=== PATIENT | female | born 1935 | race Caucasian/White ===

== ENCOUNTER 2016-09-11 11:48 | Outpatient (CLI) | payer MEDICARE ==
[2016-09-11 12:57] LABS: Bilirubin Negative (Negative); Blood, Urine Small (Negative); Glucose, Urine (Dipstick) Negative (Negative); Ketone, Urine Negative (Negative); Nitrite Negative (Negative); Protein, Urine (Dipstick) Negative (Neg-Trace); Urobilinogen 0.2 mg/dL (0.2-1.0)
[2016-09-11 13:36] LABS: Bacteria/HPF 1+ HPF (None Seen); RBC/HPF 0-3 HPF (0-3); Squamous Epithelial 0-3 HPF (0-3)
== END 2016-09-11 11:49 | disposition home or self-care (01) ==
LOC: NAVSJIPCSP 11:48
PROVIDERS: ATTEND Internal Medicine
DX: N39.0 Urinary tract infection, site not specified (principal)
CPT/HCPCS: 81003; 81015; 87077; 87086

== ENCOUNTER 2016-09-20 14:53 | Outpatient (CLI) | payer MEDICARE | END 2016-09-20 14:54 | disposition home or self-care (01) | LOC: NAV LABSP 14:53 | PROVIDERS: ATTEND Internal Medicine | DX: I48.91 Unspecified atrial fibrillation (principal) | CPT/HCPCS: 85610 ==

== ENCOUNTER 2016-10-03 10:31 | Outpatient (CLI) | payer MEDICARE ==
[2016-10-03 12:07] LABS: Prothrombin Time 21.9 SEC (12.0-14.7)
== END 2016-10-03 10:32 | disposition home or self-care (01) ==
LOC: NAV LABSP 10:31
PROVIDERS: ATTEND Internal Medicine
DX: I48.91 Unspecified atrial fibrillation (principal)
CPT/HCPCS: 85610

== ENCOUNTER 2016-10-30 15:45 | Outpatient (CLI) | payer MEDICARE ==
[2016-10-30 16:15] LABS: #Eosinphils 0.2 thou/uL (0.0-0.7); #Lymphocytes 1.6 thou/uL (1.20-3.40); #Monocytes 0.5 thou/uL (0.11-0.59); #Neutrophils 4.5 thou/uL (1.40-6.50); %Basophils 0.6 % (0.0-1.0); %Eosinophils 3.2 % (0.0-10.0); %Lymphocytes 23.2 % (21.0-51.0); %Monocytes 7.9 % (0.0-10.0); Hematocrit 39.1 % (36.0-47.0); Mean Platelet Volume 8.1 fL (7.4-10.4); Red Blood Cell (RBC) Count 4.18 mill/uL (4.20-5.40); White Blood Cell (WBC) Count 6.9 thou/uL (4.8-10.8)
[2016-10-30 16:33] LABS: ALT (SGPT) 32 U/L (0-55); AST (SGOT) 23 U/L (5-34); Alkaline Phosphatase 167 U/L (40-150); Anion Gap 16 mmol/L (10-20); BUN (Urea Nitrogen) 19 mg/dL (9.8-20.1); Bilirubin, Total 0.9 mg/dL (0.2-1.2); Calc. Creatinine Clearance 0 mL/min (70-130); Calcium 9.3 mg/dL (7.8-10.44); Carbon Dioxide 28 mmol/L (23-31); Chloride 103 mmol/L (98-107); Estimated GFR-MDRD 60; Globulin 2.6 g/dL (2.4-3.5); Protein, Total 6.9 g/dL (5.8-8.1)
[2016-10-30 16:39] LABS: Prothrombin Time 22.1 SEC (12.0-14.7)
== END 2016-10-30 15:46 | disposition home or self-care (01) ==
LOC: NAVSJIPCSP 15:45 → NAV LAB 15:46
PROVIDERS: ATTEND Internal Medicine
DX: K76.0 Fatty (change of) liver, not elsewhere classified (principal); M06.9 Rheumatoid arthritis, unspecified; I48.0 Paroxysmal atrial fibrillation
CPT/HCPCS: 80053; 85025; 85610

== ENCOUNTER 2016-12-04 10:35 | Outpatient (CLI) | payer MEDICARE, OTHER ==
[2016-12-04 15:42] LABS: INR-International Normal Ratio 3.1; Prothrombin Time 32.9 SEC (12.0-14.7)
== END 2016-12-04 10:36 ==
LOC: NAVSJIPCSP 10:35
PROVIDERS: ATTEND Internal Medicine
DX: E04.9 Nontoxic goiter, unspecified (principal); E07.89 Other specified disorders of thyroid
CPT/HCPCS: 36415; 84443; 85610

== ENCOUNTER 2017-01-29 13:10 | Outpatient (CLI) | payer MEDICARE, OTHER ==
[2017-01-29 13:27] LABS: INR-International Normal Ratio 2.8
[2017-01-29 13:33] LABS: ALT (SGPT) 17 U/L (8-55); AST (SGOT) 20 U/L (5-34); Albumin 4.2 g/dL (3.4-4.8); Alkaline Phosphatase 128 U/L (40-150); Anion Gap 17 mmol/L (10-20); BUN (Urea Nitrogen) 15 mg/dL (9.8-20.1); Bilirubin, Total 1.3 mg/dL (0.2-1.2); Calc. Creatinine Clearance 0 mL/min (70-130); Calcium 8.9 mg/dL (7.8-10.44); Carbon Dioxide 26 mmol/L (23-31); Chloride 104 mmol/L (98-107); Estimated GFR-MDRD 57; Globulin 2.5 g/dL (2.4-3.5); Glucose 105 mg/dL (83-110); Potassium 3.9 mmol/L (3.5-5.1); Protein, Total 6.7 g/dL (6.0-8.3); Sodium 143 mmol/L (136-145)
[2017-01-29 14:05] LABS: #Eosinphils 0.3 thou/uL (0.0-0.7); #Lymphocytes 1.4 thou/uL (1.20-3.40); #Monocytes 0.5 thou/uL (0.11-0.59); #Neutrophils 4.6 thou/uL (1.40-6.50); %Basophils 0.5 % (0.0-1.0); %Eosinophils 4.8 % (0.0-10.0); %Lymphocytes 20.1 % (21.0-51.0); %Monocytes 6.8 % (0.0-10.0); %Neutrophils 67.8 % (42.0-75.0); Hemoglobin 12.7 g/dL (12.0-16.0); Mean Corpuscular HGB CONC 32.8 g/dL (32.0-36.0); Mean Corpuscular Hemoglobin 30.6 pg (27.0-31.0); Mean Corpuscular Volume 93.2 fl (81.0-99.0); Mean Platelet Volume 9.6 fL (7.4-10.4); Platelet Count 198 thou/uL (130-400); RBC Distribution Width 13.4 % (11.5-14.5); Red Blood Cell (RBC) Count 4.17 mill/uL (4.20-5.40); White Blood Cell (WBC) Count 6.8 thou/uL (4.8-10.8)
== END 2017-01-29 13:11 | disposition home or self-care (01) ==
LOC: NAVSJIPCSP 13:10
PROVIDERS: ATTEND Internal Medicine
DX: R21 Rash and other nonspecific skin eruption (principal); I34.0 Nonrheumatic mitral (valve) insufficiency
CPT/HCPCS: 36415; 80053; 85025; 85610

== ENCOUNTER 2017-05-15 10:20 | Outpatient (CLI) | payer MEDICARE, OTHER ==
[2017-05-15 12:44] LABS: INR-International Normal Ratio 2.4; Prothrombin Time 27.3 SEC (12.0-14.7)
== END 2017-05-15 10:21 | disposition home or self-care (01) ==
LOC: NAVSJIPCSP 10:20
PROVIDERS: ATTEND Internal Medicine
DX: I34.0 Nonrheumatic mitral (valve) insufficiency (principal)
CPT/HCPCS: 36415; 85610

== ENCOUNTER 2017-06-25 11:45 | Outpatient (CLI) | payer MEDICARE, OTHER ==
--- NOTE | 2017-06-25 20:24 | RAD ---
PA AND LATERAL OF THE CHEST 06/25/17 INDICATION: History of contusion of the right forearm. FINDINGS: The exam is compared to a prior dated 01/24/16. There is stable moderate cardiomegaly. Pulmonary vasculature is normal. Emphysematous changes simila r. No acute air space opacity, pleural effusion, or pneumothorax is evident. Chronic osseous changes are stable. IMPRESSION: Stable cardiomegaly. POS: [facility]
--- NOTE | 2017-06-25 20:34 | RAD ---
THREE VIEWS OF THE RIGHT WRIST: 06/25/17 INDICATION: Contusion. COMPARISON: None. FINDINGS: There is an obliquely oriented mildly displaced fracture involving the distal ulnar shaft. The dista l fracture fragment is displaced radially and dorsally one cortex width. There is apex volar and rad ial angulation at the fracture site. 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 There is a prominent osteoarthrosis first CMC joint. IMPRESSION: Distal ulnar shaft fracture. POS: [facility]
[2017-06-25 20:49] LABS: INR-International Normal Ratio 2.2; Prothrombin Time 24.9 SEC (12.0-14.7)
== END 2017-06-25 11:46 | disposition home or self-care (01) ==
LOC: NAV RAD 11:45
PROVIDERS: ATTEND Internal Medicine
DX: S50.11XA Contusion of right forearm, initial encounter (principal); S52.601A Unspecified fracture of lower end of right ulna, initial encounter for closed fracture; I51.7 Cardiomegaly
CPT/HCPCS: 71020; 85610

== ENCOUNTER 2018-08-12 13:52 | Outpatient (CLI) | payer MEDICARE ==
--- NOTE | 2018-08-12 15:31 | RAD ---
CHEST PA AND LATERAL TWO VIEWS: History: 82-year-old female with history of atrial fibrillation. High blood pressure. Comparison: 06-25-17 FINDINGS: Cardiomegaly. No confluent pneumonia, overt edema, or pleural effusion. Slight blunting in the costop hrenic angles and some biapical pleural thickening. IMPRESSION: Mild stable chronic changes. Minimal cardiomegaly. Atherosclerosis of the aorta with ectasia. POS: [facility]
== END 2018-08-12 13:53 | disposition home or self-care (01) ==
LOC: NAV RAD 13:52
PROVIDERS: ATTEND Internal Medicine
DX: I48.91 Unspecified atrial fibrillation (principal); Z51.81 Encounter for therapeutic drug level monitoring; I48.0 Paroxysmal atrial fibrillation; I34.0 Nonrheumatic mitral (valve) insufficiency; I11.9 Hypertensive heart disease without heart failure; I70.0 Atherosclerosis of aorta; I77.811 Abdominal aortic ectasia; Z79.01 Long term (current) use of anticoagulants
CPT/HCPCS: 71046

== ENCOUNTER 2018-09-02 12:57 | Outpatient (CLI) | payer MEDICARE ==
[2018-09-02 13:46] LABS: #Eosinphils 0.2 thou/uL (0.0-0.7); #Lymphocytes 1.2 thou/uL (1.20-3.40); #Monocytes 0.6 thou/uL (0.11-0.59); #Neutrophils 7.8 thou/uL (1.40-6.50); %Basophils 0.4 % (0.0-1.0); %Eosinophils 2.2 % (0.0-10.0); %Lymphocytes 12.4 % (21.0-51.0); %Monocytes 5.8 % (0.0-10.0); %Neutrophils 79.3 % (42.0-75.0); Hemoglobin 12.1 g/dL (12.0-16.0); Mean Corpuscular HGB CONC 32.6 g/dL (32.0-36.0); Mean Corpuscular Hemoglobin 30.2 pg (27.0-31.0); Mean Corpuscular Volume 92.7 fL (78.0-98.0); Mean Platelet Volume 8.9 fL (7.4-10.4); Platelet Count 279 thou/uL (130-400); RBC Distribution Width 14.2 % (11.5-14.5); Red Blood Cell (RBC) Count 3.99 mill/uL (4.20-5.40); White Blood Cell (WBC) Count 9.9 thou/uL (4.8-10.8)
[2018-09-02 13:59] LABS: INR-International Normal Ratio 2.1; Prothrombin Time 23.9 SEC (12.0-14.7)
[2018-09-02 14:05] LABS: ALT (SGPT) 16 U/L (8-55); AST (SGOT) 12 U/L (5-34); Albumin 4.5 g/dL (3.4-4.8); Alkaline Phosphatase 83 U/L (40-150); Anion Gap 15 mmol/L (10-20); BUN (Urea Nitrogen) 19 mg/dL (9.8-20.1); Calc. Creatinine Clearance 0 mL/min (70-130); Carbon Dioxide 29 mmol/L (23-31); Chloride 101 mmol/L (98-107); Estimated GFR-MDRD 47; Globulin 2.5 g/dL (2.4-3.5); Glucose 95 mg/dL (83-110); Potassium 4.2 mmol/L (3.5-5.1); Sodium 141 mmol/L (136-145)
--- NOTE | 2018-09-02 18:47 | CT ---
CT ABDOMEN AND PELVIS WITH IV CONTRAST: 09/02/18 HISTORY: Left lower quadrant abdominal pain. COMPARISON: 05/29/[address] of the pelvis on 07/14/16. FINDINGS: The superior aspect dome of the liver is excluded from view. There are low density lesions seen throu ghout each lobe of the liver largest adjacent to the gallbladder fossa measuring approximately 2.8 cm demonstrating fluid attenuation. The flow density lesions were seen on prior CT exam on 2010 althoug h some of the low density lesions are larger in size. Findings are likely attributable to hepatic cys ts. The heart is mildly enlarged. There is linear bibasilar scarring versus mild atelectasis. There is a 2.5 cm fluid attenuation exoph ytic lesion mid portion left kidney compatible with a cyst. Subcentimeter too small to characterize h ypodense lesions are also within the left kidney. There is prominent extrarenal pelvis with mild left hydronephrosis. There is a 1.8 cm calculus seen w ithin the dilated extrarenal pelvis. However, dilatation of the extrarenal pelvis and left renal rosa m ecting system were also noted on study in 2010 and findings are probably related to a UPJ type obstru ction as the ureter is very small in caliber. The spleen, pancreas, and bilateral adrenal glands, demonstrate a normal CT appearance. The opacified bowel is normal in caliber. Vascular calcifications are seen in the abdominal aorta and involving the iliac arteries. There is linear density seen within the left anterolateral aspect of the pelvis, this is in region of area of hemorrhage within the pelvis likely from prior pelvic fractures. The findings may be related to mild scarring. There is a low density structure in the right adnexal region probably related to patient's right ovar y with tiny cysts present. The uterus is not visualized likely related to prior hysterectomy. There is colonic diverticulosis present. No free fluid, fluid collection or lymphadenopathy is seen in the abdomen or pelvis. There is bilateral hip osteoarthritis. Degenerative changes are seen in the spine. There is a ricardo inés fracture involving the L1 vertebral body of indeterminate age. However, this fracture was seen o n a prior chest x-ray on 06/25/17. Degenerative changes are seen in the lumbar spine. There are remote fractures involving the bilateral superior pubic rami as well as left inferior pubic ramus. IMPRESSION: 1. Mild cardiomegaly. 2. Hepatic cysts. 3. Left renal cysts. 4. 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 5. Interval enlargement of a calculus within the dilated extrarenal pelvis measuring 1.8 cm and previously measured 1.5 cm. 6. Colonic diverticulosis. 7. Hysterectomy. 8. Remote pelvic fractures as well as a remote fracture of the L1 vertebral body. 9. No acute findings are seen in the abdomen or pelvis. 1. POS: [facility]
== END 2018-09-02 12:58 | disposition home or self-care (01) ==
LOC: NAV LAB 12:57
PROVIDERS: ATTEND Internal Medicine
DX: R10.32 Left lower quadrant pain (principal); Z51.81 Encounter for therapeutic drug level monitoring; I48.0 Paroxysmal atrial fibrillation; I10 Essential (primary) hypertension; K76.0 Fatty (change of) liver, not elsewhere classified; I51.7 Cardiomegaly; K76.89 Other specified diseases of liver; N28.1 Cyst of kidney, acquired; N13.2 Hydronephrosis with renal and ureteral calculous obstruction; K57.30 Diverticulosis of large intestine without perforation or abscess without bleeding; Z90.710 Acquired absence of both cervix and uterus; Z79.01 Long term (current) use of anticoagulants
CPT/HCPCS: 36415; 74177; 80053; 83880; 85025; 85610

== ENCOUNTER 2020-01-18 10:48 | Emergency (ER) | payer MEDICARE ==
[2020-01-18 11:28] LABS: #Basophils 0.1 thou/uL (0.0-0.2); #Eosinphils 0.2 thou/uL (0.0-0.7); #Lymphocytes 1.2 thou/uL (1.20-3.40); #Monocytes 0.4 thou/uL (0.11-0.59); #Neutrophils 7.7 thou/uL (1.40-6.50); %Basophils 0.6 % (0.0-1.0); %Lymphocytes 12.7 % (21.0-51.0); %Monocytes 3.7 % (0.0-10.0); Hemoglobin 12.6 g/dL (12.0-16.0); Mean Corpuscular HGB CONC 31.2 g/dL (32.0-36.0); Mean Corpuscular Hemoglobin 29.6 pg (27.0-31.0); Mean Corpuscular Volume 94.8 fL (78.0-98.0); Mean Platelet Volume 9.2 fL (7.4-10.4); Platelet Count 212 thou/uL (130-400); RBC Distribution Width 14.3 % (11.5-14.5); Red Blood Cell (RBC) Count 4.25 mill/uL (4.20-5.40); White Blood Cell (WBC) Count 9.4 thou/uL (4.8-10.8)
[2020-01-18] MEDS ORDERED: Ondansetron PF 4 MG/2 ML Vial ONE (11:29)
[2020-01-18 11:37] LABS: ALT (SGPT) 23 U/L (8-55); AST (SGOT) 19 U/L (5-34); Albumin 4.5 g/dL (3.4-4.8); Alkaline Phosphatase 102 U/L (40-110); Anion Gap 17 mmol/L (10-20); BUN (Urea Nitrogen) 9 mg/dL (9.8-20.1); Bilirubin, Total 1.2 mg/dL (0.2-1.2); CK (CPK) 31 U/L (29-168); Calc. Creatinine Clearance 0 mL/min (70-130); Calcium 9.6 mg/dL (7.8-10.44); Carbon Dioxide 25 mmol/L (23-31); Chloride 105 mmol/L (98-107); Estimated GFR-MDRD 66; Globulin 2.8 g/dL (2.4-3.5); Glucose 118 mg/dL (83-110); Lipase 27 U/L (8-78); Potassium 3.7 mmol/L (3.5-5.1); Protein, Total 7.3 g/dL (6.0-8.3); Sodium 143 mmol/L (136-145)
[2020-01-18 12:19] LABS: Bilirubin Negative (Negative); Blood, Urine Small (Negative); Clarity Clear (Clear); Glucose, Urine (Dipstick) Negative (Negative); Leukocyte Trace (Negative); Nitrite Negative (Negative); Protein, Urine (Dipstick) Negative (Neg-Trace); Urobilinogen 0.2 mg/dL (Less than 2)
[2020-01-18 12:29] LABS: Bacteria/HPF Rare-Few HPF (None Seen); RBC/HPF 0-3 HPF (0-3); Squamous Epithelial 0-3 HPF (0-3); WBC/HPF 0-3 HPF (0-3)
--- NOTE | 2020-01-18 13:08 | RAD ---
CHEST 1 VIEW PORTABLE: HISTORY: Onset of atrial fibrillation. COMPARISON: 08/12/2018. FINDINGS: Cardiomegaly. No confluent pneumonia, overt edema, or significnat pleural effusion. IMPRESSION: Overall stable exam with cardiomegaly without overt acute process. POS: [facility]
== END 2020-01-18 12:49 | disposition home or self-care (01) ==
LOC: NAV ERS 10:48
DX: R53.1 Weakness (principal); R06.00 Dyspnea, unspecified; I48.91 Unspecified atrial fibrillation; K21.9 Gastro-esophageal reflux disease without esophagitis; E78.5 Hyperlipidemia, unspecified; M19.90 Unspecified osteoarthritis, unspecified site; F41.9 Anxiety disorder, unspecified; F32.9 Major depressive disorder, single episode, unspecified; Z79.891 Long term (current) use of opiate analgesic; Z79.01 Long term (current) use of anticoagulants; Z79.899 Other long term (current) drug therapy
CPT/HCPCS: 71045; 80053; 81003; 81015; 82550; 83690; 83880; 84484; 85025; 93005; 96374; J2405

== ENCOUNTER 2020-12-03 17:11 | Observation (INO) | payer MEDICARE ==
[2020-12-03 17:55] LABS: INR-International Normal Ratio 3.2; Prothrombin Time 33.2 sec (12.0-14.7)
[2020-12-03 18:00] LABS: ALT (SGPT) 15 U/L (8-55); AST (SGOT) 16 U/L (5-34); Alkaline Phosphatase 96 U/L (40-110); Anion Gap 17 mmol/L (10-20); BUN (Urea Nitrogen) 21 mg/dL (9.8-20.1); Bilirubin, Total 2.8 mg/dL (0.2-1.2); Calc. Creatinine Clearance 0 mL/min (70-130); Calcium 9.1 mg/dL (7.8-10.44); Carbon Dioxide 23 mmol/L (23-31); Chloride 99 mmol/L (98-107); Globulin 2.9 g/dL (2.4-3.5); Glucose 133 mg/dL (83-110); Potassium 3.7 mmol/L (3.5-5.1); Protein, Total 6.9 g/dL (5.8-8.1); Sodium 135 mmol/L (136-145)
[2020-12-03 18:28] LABS: #Basophils 0.1 thou/uL (0.0-0.2); #Lymphocytes 0.6 thou/uL (1.20-3.40); #Monocytes 0.4 thou/uL (0.11-0.59); #Neutrophils 11.7 thou/uL (1.40-6.50); %Basophils 1.1 % (0.0-1.0); %Lymphocytes 4.4 % (21.0-51.0); %Monocytes 3.2 % (0.0-10.0); %Neutrophils 91.3 % (42.0-75.0); Hemoglobin 10.9 g/dL (12.0-16.0); Mean Corpuscular HGB CONC 29.4 g/dL (32.0-36.0); Mean Corpuscular Hemoglobin 26.7 pg (27.0-31.0); Mean Corpuscular Volume 90.9 fL (78.0-98.0); Mean Platelet Volume 8.3 fL (7.4-10.4); Platelet Count 185 thou/uL (130-400); RBC Distribution Width 18.5 % (11.5-14.5); Red Blood Cell (RBC) Count 4.09 mill/uL (4.20-5.40); White Blood Cell (WBC) Count 12.8 thou/uL (4.8-10.8)
[2020-12-03 18:38] LABS: Bilirubin Small (Negative); Blood, Urine Large (Negative); Clarity Cloudy (Clear); Glucose, Urine (Dipstick) Negative (Negative); Ketone, Urine Negative (Negative); Leukocyte Large (Negative); Nitrite Positive (Negative); Protein, Urine (Dipstick) > or equal to 300 mg/dL (Neg-Trace); Specific Gravity, Urine 1.015 (1.005-1.030)
[2020-12-03 18:43] LABS: pH, Urine Greater/Equal 9.0 (5.0-9.0)
[2020-12-03 18:52] LABS: RBC/HPF 0-3 HPF (0-3)
[2020-12-03 18:53] LABS: WBC/HPF 21-50 HPF (0-3)
[2020-12-03 18:54] LABS: Bacteria/HPF 4+ HPF (None Seen); Renal Epithelial 0-3 HPF (None Seen)
[2020-12-03] MEDS ORDERED: Sodium Chloride 0.9% 0 ML ONE (18:58)
[2020-12-03] MEDS ORDERED: Ondansetron PF 4 MG/2 ML Vial ONE (18:58)
[2020-12-03] MEDS ORDERED: cefTRIAXone\\ROCEPHIN 2 GM VIAL ONE (18:58)
[2020-12-03] MEDS ORDERED: Sodium Chloride 0.9% 100 ML ONE (19:27)
[2020-12-03] MEDS ORDERED: Sodium Chloride 0.9% 250 ML 250 ML ONE (19:28)
[2020-12-03 20:01] LABS: Lactic Acid 0.9 mmol/L (0.5-2.2)
[2020-12-03 22:09] LABS: SARS-CoV-2 NAA Rapid Test Not Detected (NotDetected)
[2020-12-03 23:32] VITALS: BMI 25.7
[2020-12-04 05:42] LABS: Anion Gap 13 mmol/L (10-20); BUN (Urea Nitrogen) 23 mg/dL (9.8-20.1); Calc. Creatinine Clearance 48 mL/min (70-130); Calcium 8.7 mg/dL (7.8-10.44); Carbon Dioxide 25 mmol/L (23-31); Chloride 100 mmol/L (98-107); Glucose 97 mg/dL (83-110); Potassium 3.4 mmol/L (3.5-5.1); Sodium 135 mmol/L (136-145)
[2020-12-04 06:10] LABS: Hemoglobin 9.6 g/dL (12.0-16.0); Mean Corpuscular HGB CONC 29.2 g/dL (32.0-36.0); Mean Corpuscular Hemoglobin 26.7 pg (27.0-31.0); Mean Corpuscular Volume 91.4 fL (78.0-98.0); Mean Platelet Volume 9.9 fL (7.4-10.4); Platelet Count 155 thou/uL (130-400); RBC Distribution Width 17.6 % (11.5-14.5); Red Blood Cell (RBC) Count 3.59 mill/uL (4.20-5.40); White Blood Cell (WBC) Count 9.4 thou/uL (4.8-10.8)
[2020-12-04 06:12] LABS: Anisocytosis SLIGHT = 6-15 cells (100X) (0-5/hpf); Band 1 % (5-11); Hypochromia SLIGHT = 6-15 cells (100X) (0-5/hpf); Lymphocytes 11 % (21-51); MDiff Complete? YES; Monocytes 1 % (0-10); Neutrophil 86 % (42-75); Ovalocytes MODERATE= 6-15 cells (100X) (0-1/hpf)
[2020-12-04] MEDS ORDERED: Carvedilol 25 MG TAB PO SCH (08:00)
[2020-12-04] MEDS: Estradiol 1 MG TAB PO SCH (08:09)
[2020-12-04] MEDS: Fish Oil 1,000 MG CAP PO SCH (08:09)
[2020-12-04] MEDS: PARoxetine 20 MG TAB PO SCH (08:09)
[2020-12-04] MEDS: Cholecalciferol 1,000 UNITS (25 MCG) TAB PO SCH (08:09)
[2020-12-04 08:10] VITALS: BP 140/66
[2020-12-04] MEDS: Carvedilol 6.25 MG TAB PO SCH (08:10)
[2020-12-04] MEDS: Warfarin Sodium 5 MG TAB PO SCH (08:16)
[2020-12-04 08:38] VITALS: TEMP 97.4
[2020-12-04 09:01] LABS: INR-International Normal Ratio 3.4; Prothrombin Time 35.3 sec (12.0-14.7)
[2020-12-04] MEDS: Ciprofloxacin 500 MG TAB PO SCH (11:08)
[2020-12-04] MEDS ORDERED: Atorvastatin Calcium 40 MG TAB PO SCH (21:00)
[2020-12-05] MEDS ORDERED: Folic Acid 1 MG TAB PO SCH (09:00)
[2020-12-07] MEDS ORDERED: Methotrexate Sodium 2.5 MG TAB PO SCH (09:00)
[2020-12-08] MEDS ORDERED: Warfarin Sodium 2.5 MG TAB PO SCH (09:00)
== END 2020-12-04 11:26 | disposition home or self-care (01) ==
LOC: NAV ERS 17:11 → INTOOBSV 22:42 → NAV ACUTE 22:42
PROVIDERS: ADMIT Internal Medicine; ATTEND Internal Medicine
DX: N39.0 Urinary tract infection, site not specified (principal); I48.91 Unspecified atrial fibrillation; K21.9 Gastro-esophageal reflux disease without esophagitis; E78.5 Hyperlipidemia, unspecified; M19.90 Unspecified osteoarthritis, unspecified site; M06.9 Rheumatoid arthritis, unspecified; Z79.01 Long term (current) use of anticoagulants; Z79.899 Other long term (current) drug therapy; Z88.8 Allergy status to other drugs, medicaments and biological substances; Z20.822 Contact with and (suspected) exposure to COVID-19
CPT/HCPCS: 0240U; 36415; 71045; 80048; 80053; 81003; 81015; 83605; 85025; 85610; 87040; 87077; 87086; 87186; 96365; 96367; G0378; J0696; J2405; J3370; J3490; J7050

== ENCOUNTER 2021-04-28 15:02 | Emergency (ER) | payer MEDICARE ==
[2021-04-28 16:09] LABS: Bilirubin Negative (Negative); Blood, Urine Trace (Negative); Clarity Slightly Cloudy (Clear); Glucose, Urine (Dipstick) Negative (Negative); Ketone, Urine Negative (Negative); Leukocyte Negative (Negative); Nitrite Negative (Negative); Protein, Urine (Dipstick) Negative (Neg-Trace)
[2021-04-28 16:10] LABS: INR-International Normal Ratio 2.6; Prothrombin Time 28.3 sec (12.0-14.7)
[2021-04-28 16:11] LABS: PTT 39.2 sec (22.9-36.1)
[2021-04-28 16:14] LABS: RBC/HPF 0-3 HPF (0-3); Squamous Epithelial 0-3 HPF (0-3); WBC/HPF 0-3 HPF (0-3)
[2021-04-28 16:15] LABS: Bacteria/HPF None Seen HPF (None Seen)
[2021-04-28 16:17] LABS: ALT (SGPT) 11 U/L (8-55); AST (SGOT) 15 U/L (5-34); Albumin 3.8 g/dL (3.4-4.8); Alkaline Phosphatase 71 U/L (40-110); Anion Gap 15 mmol/L (10-20); BUN (Urea Nitrogen) 10 mg/dL (9.8-20.1); Bilirubin, Total 1.7 mg/dL (0.2-1.2); Calc. Creatinine Clearance 0 mL/min (70-130); Carbon Dioxide 30 mmol/L (23-31); Chloride 102 mmol/L (98-107); Globulin 2.6 g/dL (2.4-3.5); Glucose 141 mg/dL (83-110); Protein, Total 6.4 g/dL (5.8-8.1); Sodium 144 mmol/L (136-145)
[2021-04-28 16:22] LABS: #Basophils 0.1 thou/uL (0.0-0.2); #Eosinphils 0.1 thou/uL (0.0-0.7); #Lymphocytes 0.7 thou/uL (1.20-3.40); #Monocytes 0.6 thou/uL (0.11-0.59); #Neutrophils 4.9 thou/uL (1.40-6.50); %Basophils 0.9 % (0.0-1.0); %Eosinophils 1.4 % (0.0-10.0); %Lymphocytes 10.9 % (21.0-51.0); %Monocytes 9.1 % (0.0-10.0); %Neutrophils 77.7 % (42.0-75.0); Hemoglobin 10.2 g/dL (12.0-16.0); Mean Corpuscular HGB CONC 29.4 g/dL (32.0-36.0); Mean Corpuscular Hemoglobin 26.5 pg (27.0-31.0); Mean Corpuscular Volume 90.1 fL (78.0-98.0); Mean Platelet Volume 6.6 fL (7.4-10.4); Platelet Count 251 thou/uL (130-400); RBC Distribution Width 19.5 % (11.5-14.5); Red Blood Cell (RBC) Count 3.84 mill/uL (4.20-5.40); White Blood Cell (WBC) Count 6.3 thou/uL (4.8-10.8)
[2021-04-28] MEDS ORDERED: Ondansetron PF 4 MG/2 ML Vial ONE (16:22)
[2021-04-28 16:24] LABS: Anisocytosis SLIGHT = 6-15 cells (100X) (0-5/hpf); Burr Cells SLIGHT = 2-5 cells (100X) (0-1/hpf); Elliptocytes SLIGHT = 2-5 cells (100X) (0-1/hpf); Hypochromia SLIGHT = 6-15 cells (100X) (0-5/hpf); MDiff Complete? YES; Macrocytosis SLIGHT = 6-15 cells (100X) (0-5/hpf); Microcytosis SLIGHT = 6-15 cells (100X) (0-5/hpf); Ovalocytes SLIGHT = 2-5 cells (100X) (0-1/hpf); Platelet Morphology Comment Appears Adequate; Poikilocytosis SLIGHT = 6-15 cells (100X) (0-5/hpf); Schistocytes SLIGHT = 2-5 cells (100X) (0-1/hpf)
[2021-04-28] MEDS ORDERED: Potassium Chloride 20 MEQ TAB ONE (17:21)
[2021-04-28] MEDS ORDERED: Metoprolol Tartrate 5 MG/5 ML VIAL ONE (18:47)
[2021-04-30 09:48] LABS: SARS-CoV-2 PCR by NAA Not Detected (NotDetected)
== END 2021-04-28 19:30 | disposition home or self-care (01) ==
LOC: NAV ERS 15:02
DX: R11.0 Nausea (principal); I10 Essential (primary) hypertension; R53.1 Weakness; R42 Dizziness and giddiness; R53.81 Other malaise; Z20.822 Contact with and (suspected) exposure to COVID-19; I48.91 Unspecified atrial fibrillation; K21.9 Gastro-esophageal reflux disease without esophagitis; E78.5 Hyperlipidemia, unspecified; M06.9 Rheumatoid arthritis, unspecified; Z79.899 Other long term (current) drug therapy; Z79.01 Long term (current) use of anticoagulants
CPT/HCPCS: 71045; 80053; 83605; 85025; 85610; 85730; U0003; U0005; 81003; 81015; 96374; 96375; J2405

== ENCOUNTER 2021-10-18 13:33 | Outpatient (CLI) | payer MEDICARE | END 2021-10-18 13:34 | disposition home or self-care (01) | LOC: NAV RAD 13:33 | PROVIDERS: ATTEND Family Medicine | DX: I48.91 Unspecified atrial fibrillation (principal); I87.2 Venous insufficiency (chronic) (peripheral); R06.00 Dyspnea, unspecified | CPT/HCPCS: 71046 ==

== ENCOUNTER 2022-05-02 03:00 | Emergency (ER) | payer MEDICARE ==
[2022-05-02] MEDS ORDERED: Acetaminophen/Codeine 30-300mg Tablet ONE (03:59)
[2022-05-02] MEDS ORDERED: predniSONE 20 MG TAB ONE (03:59)
== END 2022-05-02 04:15 | disposition home or self-care (01) ==
LOC: NAV ERS 03:00
DX: M54.2 Cervicalgia (principal); I48.91 Unspecified atrial fibrillation; K21.9 Gastro-esophageal reflux disease without esophagitis; E78.00 Pure hypercholesterolemia, unspecified; Z79.01 Long term (current) use of anticoagulants; Z79.899 Other long term (current) drug therapy
CPT/HCPCS: 71045; 93005; J7512

== ENCOUNTER 2023-01-07 20:57 | Emergency (ER) | payer MEDICARE ==
[2023-01-07] MEDS ORDERED: Ipratropium/Albuterol 3 ML NEB ONE (21:35)
[2023-01-07 21:46] LABS: #Basophils 0.1 thou/uL (0.0-0.2); #Eosinphils 0.3 thou/uL (0.0-0.7); #Lymphocytes 0.5 thou/uL (1.20-3.40); #Monocytes 0.3 thou/uL (0.11-0.59); %Eosinophils 4.9 % (0.0-10.0); %Lymphocytes 10.5 % (21.0-51.0); %Monocytes 4.9 % (0.0-10.0); %Neutrophils 78.6 % (42.0-75.0); Hemoglobin 10.3 g/dL (12.0-16.0); Mean Corpuscular HGB CONC 32.7 g/dL (32.0-36.0); Mean Corpuscular Volume 94.8 fl (78.0-98.0); Mean Platelet Volume 8.2 fL (7.4-10.4); Platelet Count 223 10x3/uL (130-400); RBC Distribution Width 14.4 % (11.5-14.5); Red Blood Cell (RBC) Count 3.33 mill/uL (4.20-5.40); White Blood Cell (WBC) Count 5.1 10x3/uL (4.8-10.8)
[2023-01-07 22:27] LABS: ALT (SGPT) 35 U/L (8-55); AST (SGOT) 40 U/L (5-34); Albumin 4.2 g/dL (3.4-4.8); Alkaline Phosphatase 80 U/L (40-110); Anion Gap 17 mmol/L (10-20); BUN (Urea Nitrogen) 28 mg/dL (9.8-20.1); Bilirubin, Total 0.6 mg/dL (0.2-1.2); Calc. Creatinine Clearance 0 mL/min (70-130); Calcium 8.9 mg/dL (7.8-10.44); Carbon Dioxide 23 mmol/L (23-31); Chloride 103 mmol/L (98-107); Estimated GFR 35; Globulin 2.7 g/dL (2.4-3.5); Glucose 105 mg/dL (83-110); Magnesium 1.8 mg/dL (1.6-2.6); Potassium 4.2 mmol/L (3.5-5.1); Protein, Total 6.9 g/dL (5.8-8.1); Sodium 139 mmol/L (136-145)
[2023-01-07 22:34] LABS: SARS-CoV-2 NAA Rapid Test DETECTED (NotDetected)
[2023-01-07] MEDS ORDERED: Dexamethasone 4 mg/ml Vial ONE (22:50)
[2023-01-07] MEDS ORDERED: Benzonatate 100 MG CAP ONE (23:21)
== END 2023-01-07 23:30 | disposition home or self-care (01) ==
LOC: NAV ERS 20:57
DX: U07.1 COVID-19 (principal); I48.91 Unspecified atrial fibrillation; K21.9 Gastro-esophageal reflux disease without esophagitis; E78.00 Pure hypercholesterolemia, unspecified; M19.90 Unspecified osteoarthritis, unspecified site; M06.9 Rheumatoid arthritis, unspecified; Z79.899 Other long term (current) drug therapy
CPT/HCPCS: 36415; 71045; 80053; 83735; 84484; 85025; 87081; 87430; 93005; 94640; 94760; 96372; J1100; J7620

== ENCOUNTER 2023-01-15 10:41 | Emergency (ER) | payer MEDICARE | END 2023-01-15 11:28 | disposition home or self-care (01) | LOC: NAV ERS 10:41 | DX: U07.1 COVID-19 (principal) | CPT/HCPCS: 99283 ==

== ENCOUNTER 2023-12-25 20:55 | Emergency (ER) | payer MEDICARE ==
[2023-12-25] MEDS ORDERED: Lidocaine 1% (PF) 30 ML VIAL ONE (21:25)
[2023-12-25] MEDS ORDERED: Bacitracin 1 PK ONE (21:50)
[2023-12-25] MEDS ORDERED: Boostrix 0.5 ML (Tdap) VIAL (>/=7 yrs of age) ONE (21:50)
== END 2023-12-25 22:21 | disposition home or self-care (01) ==
LOC: NAV ERS 20:55
DX: S51.812A Laceration without foreign body of left forearm, initial encounter (principal); I48.91 Unspecified atrial fibrillation; Z79.01 Long term (current) use of anticoagulants; Z23 Encounter for immunization; W01.0XXA Fall on same level from slipping, tripping and stumbling without subsequent striking against object, initial encounter
CPT/HCPCS: 12004; 90471; 90715; J2001

== ENCOUNTER 2024-03-31 14:50 | Emergency (ER) | payer MEDICARE ==
[2024-03-31] MEDS ORDERED: Sodium Chloride 0.9% 500 ML ONE (15:35)
[2024-03-31 15:39] LABS: #Eosinphils 0.1 thou/uL (0.0-0.7); #Lymphocytes 0.7 thou/uL (1.20-3.40); #Monocytes 0.6 thou/uL (0.11-0.59); #Neutrophils 6.8 thou/uL (1.40-6.50); %Basophils 0.3 % (0.0-1.0); %Eosinophils 1.7 % (0.0-10.0); %Lymphocytes 8.9 % (21.0-51.0); %Monocytes 6.7 % (0.0-10.0); %Neutrophils 82.5 % (42.0-75.0); Hematocrit 28.1 % (36.0-47.0); Hemoglobin 8.7 g/dL (12.0-16.0); Mean Corpuscular Hemoglobin 29.7 pg (27.0-31.0); Mean Corpuscular Volume 96.1 fl (78.0-98.0); Mean Platelet Volume 6.8 fL (7.4-10.4); Platelet Count 209 10x3/uL (130-400); RBC Distribution Width 15.6 % (11.5-14.5); Red Blood Cell (RBC) Count 2.92 mill/uL (4.20-5.40); White Blood Cell (WBC) Count 8.3 10x3/uL (4.8-10.8)
[2024-03-31 15:57] LABS: ALT (SGPT) 15 U/L (8-55); AST (SGOT) 14 U/L (5-34); Albumin 3.7 g/dL (3.4-4.8); Alkaline Phosphatase 89 U/L (40-110); Anion Gap 16 mmol/L (10-20); BUN (Urea Nitrogen) 28 mg/dL (9.8-20.1); Bilirubin, Total 1.1 mg/dL (0.2-1.2); Calc. Creatinine Clearance 0 mL/min (70-130); Calcium 9.5 mg/dL (7.8-10.44); Carbon Dioxide 24 mmol/L (23-31); Chloride 104 mmol/L (98-107); Estimated GFR 37; Glucose 120 mg/dL (83-110); Protein, Total 6.7 g/dL (5.8-8.1); Sodium 139 mmol/L (136-145)
[2024-03-31 15:58] LABS: Troponin I Less than 0.010 ng/mL (< 0.028)
[2024-03-31 16:16] LABS: INR-International Normal Ratio 2.7; Prothrombin Time 29.1 sec (12.0-14.7)
[2024-03-31 16:17] LABS: PTT 47.6 sec (22.9-36.1)
[2024-03-31 17:20] LABS: Bilirubin Negative (Negative); Blood, Urine Negative (Negative); Clarity Clear (Clear); Glucose, Urine (Dipstick) Negative (Negative); Ketone, Urine Negative (Negative); Leukocyte Trace (Negative); Nitrite Negative (Negative); Protein, Urine (Dipstick) Negative (Neg-Trace); Urobilinogen 0.2 mg/dL (Less than 2)
[2024-03-31 17:35] LABS: CAUTI Indications for Culture Pelvic or flank pain; RBC/HPF 0-3 HPF (0-3); Squamous Epithelial 0-3 HPF (0-3); Urine Culture Reflex No No; WBC/HPF 0-3 HPF (0-3)
== END 2024-03-31 22:47 | disposition short-term general hospital (02) ==
LOC: NAV ERS 14:50
DX: K92.2 Gastrointestinal hemorrhage, unspecified (principal); D64.9 Anemia, unspecified; E78.00 Pure hypercholesterolemia, unspecified; K21.9 Gastro-esophageal reflux disease without esophagitis; I48.91 Unspecified atrial fibrillation; Z79.01 Long term (current) use of anticoagulants; Z79.899 Other long term (current) drug therapy
CPT/HCPCS: 71045; 80053; 81001; 82274; 83880; 84484; 85025; 85610; 85730; 93005; 96360; J7030

== ENCOUNTER 2025-07-14 14:10 | Emergency (ER) | payer MEDICARE, OTHER | END 2025-07-14 15:19 | disposition home or self-care (01) | LOC: NAV ERS 14:10 | DX: B00.9 Herpesviral infection, unspecified (principal); I48.91 Unspecified atrial fibrillation; E78.00 Pure hypercholesterolemia, unspecified; Z79.899 Other long term (current) drug therapy | CPT/HCPCS: 99283 ==

== ENCOUNTER 2025-08-03 23:16 | Emergency (ER) | payer MEDICARE, OTHER ==
[~2025-08-03 23:16] MED LIST: Iopamidol 370 76% 100 ML VIAL ONE
[2025-08-03] MEDS ORDERED: Pantoprazole 40 MG VIAL ONE (23:33)
[2025-08-03] MEDS ORDERED: Mag-Al Plus 1200/1200/120 MG (30 mL) UDCUP ONE (23:35)
[2025-08-03] MEDS ORDERED: Lidocaine Viscous Sol 2% 15 ml UD Cup ONE (23:36)
[2025-08-03 23:40] LABS: Hematocrit 34.5 % (36.0-47.0); Hemoglobin 12.3 g/dL (12.0-16.0); Mean Corpuscular Hemoglobin 32.9 pg (27.0-31.0); Mean Corpuscular Volume 92.4 fl (78.0-98.0); Platelet Count 266 10x3/uL (130-400); Red Blood Cell (RBC) Count 3.74 mill/uL (4.20-5.40); White Blood Cell (WBC) Count 9.8 10x3/uL (4.8-10.8)
[2025-08-03 23:53] LABS: ALT (SGPT) 12 U/L (Less than 34); AST (SGOT) 24 U/L (11-34); Albumin 4.2 g/dL (3.1-4.5); Alkaline Phosphatase 87 U/L (40-110); Anion Gap 18 mmol/L (10-20); BUN (Urea Nitrogen) 31 mg/dL (9.8-20.1); Bilirubin, Total 0.8 mg/dL (0.3-1.2); Calc. Creatinine Clearance 0 mL/min (70-130); Calcium 10.0 mg/dL (7.8-10.44); Carbon Dioxide 22 mmol/L (23-31); Chloride 102 mmol/L (98-107); Globulin 3.3 g/dL (2.4-3.5); Glucose 155 mg/dL (83-110); Lipase 64 U/L (8-78); Potassium 4.8 mmol/L (3.5-5.1); Sodium 137 mmol/L (136-145)
[2025-08-03 23:54] LABS: MDiff Complete? YES; Platelet Adequacy Comment Appears Adequate
[2025-08-04 00:29] LABS: Troponin I 0.011 ng/mL (< 0.028)
[2025-08-04] MEDS ORDERED: cefTRIAXone (ROCEPHIN) 1 GM VIAL ONE (02:02)
[2025-08-04 02:52] LABS: Glucose, Urine (Dipstick) Negative (Negative); Leukocyte Trace (Negative); Protein, Urine (Dipstick) Trace mg/dL (Neg-Trace); Specific Gravity, Urine 1.015 (1.005-1.030)
[2025-08-04 02:54] LABS: Bacteria/HPF Rare-Few HPF (None Seen); CAUTI Indications for Culture Pelvic or flank pain
[2025-08-04 02:55] LABS: Urine Culture Reflex No No
== END 2025-08-04 03:30 | disposition short-term general hospital (02) ==
LOC: NAV ERS 23:16
DX: K81.0 Acute cholecystitis (principal); N20.0 Calculus of kidney; Z79.899 Other long term (current) drug therapy
CPT/HCPCS: 71045; 74177; 80053; 81001; 83690; 84484; 85025; 93005; 96365; 96375; J0696; J2272; J2470; Q9967